=== PATIENT | male | born 1995 | race Caucasian/White ===

== ENCOUNTER 2022-03-12 08:00 | Outpatient (RCR) | payer OTHER, SELFPAY | END 2022-10-21 16:17 | disposition home or self-care (01) | PROVIDERS: Visit Provider Orthopaedic Surgery Sports Medicine | DX: M54.2 Cervicalgia (principal); S46.919A Strain of unspecified muscle, fascia and tendon at shoulder and upper arm level, unspecified arm, initial encounter; M62.89 Other specified disorders of muscle; Z51.89 Encounter for other specified aftercare | CPT/HCPCS: 97012; 97110; 97140; 97162 ==

== ENCOUNTER 2022-03-19 07:05 | Outpatient (CLI) | payer OTHER, SELFPAY ==
--- NOTE | 2022-03-19 07:15 | CRLHL7_ITS ---
For Patients: As a result of the Century Cures Act, medical imaging exams and procedure reports are released immediately into your electronic medical record. You may view this report before your referring provider. If you have questions, please contact your health care provider. INDICATION: Neck pain; intermittently radiating into both arms. TECHNIQUE: Sagittal T1, sagittal and axial T2 and sagittal STIR images are obtained. FINDINGS: The sagittal alignment cervical spine is within normal limits. The lower brainstem, the cervical and thoracic spinal cord appear intrinsically normal. There is no stenosis foramen magnum level C1 or C2 levels. At C2-3 no disc herniation central or lateral stenosis. At C3-4 no disc herniation central or lateral stenosis. At C4-5 no disc herniation central or lateral stenosis. At C5-6 no disc herniation central or lateral stenosis. At C6-7 no disc herniation central or lateral stenosis. At C7-T1 no disc herniation central or lateral stenosis. IMPRESSION: 1. There is no evidence of cervical disc herniation, central or lateral stenosis or intradural pathology. 2. Normal appearing cervical spinal cord. Dictated by Landen Perez MD @ 03/19/2022 12:20:51 PM (Electronically Signed)
== END 2022-03-19 07:06 | disposition home or self-care (01) ==
LOC: MRI 07:05
PROVIDERS: Visit Provider Orthopaedic Surgery Sports Medicine
DX: M54.2 Cervicalgia (principal); S46.919A Strain of unspecified muscle, fascia and tendon at shoulder and upper arm level, unspecified arm, initial encounter
CPT/HCPCS: 72141

== ENCOUNTER 2022-03-21 10:10 | Outpatient (CLI) | payer OTHER, SELFPAY ==
[2022-03-21 10:41] LABS: White Blood Count* 4.37 K/uL (4.50-11.00)
[2022-03-21 11:16] LABS: C Reactive Protein* < 0.5 mg/dL (0.5-1.0)
[2022-03-21 11:30] LABS: Erythrocyte SedimentationRate* 2 mm/hr (2-15)
[2022-03-22 15:18] LABS: Rheumatoid Factor <10 IU/mL (0-14)
[2022-03-23 01:29] LABS: Anti-Nuclear Ab(ANA)IgG ELISA None Detected (None Detected)
== END 2022-03-21 10:11 | disposition home or self-care (01) ==
LOC: LAB 10:11
PROVIDERS: Visit Provider Orthopaedic Surgery Sports Medicine
DX: M25.50 Pain in unspecified joint (principal); M79.10 Myalgia, unspecified site
CPT/HCPCS: 36415; 85048; 85651; 86039; 86140; 86200; 86431; 86618

== ENCOUNTER 2024-08-26 19:03 | Emergency (ER) | payer OTHER, SELFPAY ==
--- OUTSIDE RECORDS SUMMARY | 2024-08-26 19:07 | XMS_ITS | Clinical Summary ---
Author Organization [facility] Address [address] [place] [id number] Care Team Providers Care Account Officer Name Role Phone Isidro Otero MD Primary Care Provider [phone] Allergies No known active allergies Medications metoprolol succinate (TOPROL XL) 25 mg Sustained-Relea se tabletIndicatio ns:Bicuspid aortic valve,Enlarged aorta,Aneurysm of ascending aorta without rupture Take 1 Tablet (25 mg) by mouth once daily. 90 Tablet 3 5 Active Additional Information Patient not taking.Reason: hasn't started taking yet, Reported on 08/26/2024 loratadine (CLARITIN) 10 mg tabletIndicatio ns:Rhinitis Take 1 tablet by mouth once daily. For allergies. 30 tablet 5 3 025 Discontin ued(*Marilyn ent states no longer taking) triamcinolone, 55 mcg each actuation, nasal (NASACORT) 55 mcg nasal spray Inhale 2 Sprays into both nostrils once daily. 16.5 g 0 5 025 Discontin ued(*Marilyn ent states no longer taking) ranitidine (ZANTAC) 150 mg tablet Take 150 mg by mouth 2 times daily. 025 Discontin ued(*Marilyn ent states no longer taking) CALCIUM CARBONATE (TUMS 500 ORAL)Indication s:heartburn Take 2 Tabs by mouth once daily if needed (uses daily). Indications: HEARTBURN 025 Discontin ued(*Marilyn ent states no longer taking) Omeprazole 20 mg tabletIndicatio ns:Reflux esophagitis Take 1 tablet by mouth once daily. For Silent Reflux/throat symptoms. 30 tablet 6 7 025 Discontin ued(*Marilyn ent states no longer taking) SUMAtriptan (IMITREX) 25 mg tabletIndicatio ns:Migraine with aura, not intractable, without status migrainosus Take 1 tablet by mouth every 2 hours if needed for Migraine. Max dose: 200mg per 24 hrs. 8 tablet 1 7 025 Discontin ued(*Marilyn ent states no longer taking) metoprolol tartrate (LOPRESSOR) 50 mg tabletIndicatio ns:Preprocedura l examination Take 1 Tablet (50 mg) by mouth one time for 1 dose. Medication(s) given per CTA protocol (policy reference #[id number]). 5 025 Discontin ued(*Med complete/ Regimen complete/ Level of care change) nitroglycerin (NITROSTAT) 0.4 mg sublingual tabletIndicatio ns:Preprocedura l examination Place 2 Tablets (0.8 mg) under the tongue one time for 1 dose. Medication(s) given per CTA protocol (policy reference #[id number]). 5 025 Discontin ued(*Med complete/ Regimen complete/ Level of care change) Active Problems Problem Noted Date Diagnosed Date Enlarged aorta 08/23/2024 Bicuspid aortic valve 08/23/2024 Overview (08/25/2024): August 2024: Found on echocardiogram. Aneurysm of ascending aorta without rupture 09/2024 Overview (08/25/2024): August 2024: found on echocardiogram. GERD (gastroesophageal reflux disease) 1 Varicella without mention of complication 2010 Overview (01/31/2011): History of disease age 5 in the spring Regular astigmatism 09/17/2006 Myopia 09/17/2006 Encounters Date Type Department Care Team Description 08/26/2024 2:30 PM MANUAL TRAINING TEACHER Office Visit [facility] [address] [place] [address] Doc [address] MD CV CT Surgery New (AORTIC VALVE, REF: [place]//PCP: Isidro Otero MD//) 08/25/2024 1:00 PM MANUAL TRAINING TEACHER Ancillary Procedure [facility] [address] [place] [address] Arrived 08/25/2024 11:00 AM MANUAL TRAINING TEACHER Office Visit [facility] [address] [place] [address] Clemencia Ricardo MD Consult (MARK/NEW PT- Bicuspid aortic valve, Dizziness, CTA/Echo/EKG/Labs done 08/23, Post ED visit 08/23, records in chart- Ref by Susie Patton MD) 08/25/2024 Orders Only [facility] [address] [place] [address] Blayne Kiran RN <No scans attached> 08/25/2024 Telephone [facility] [address] [place] [address] Clemenica Ricardo MD Referral 08/25/2024 Travel 08/23/2024 12:50 PM MANUAL TRAINING TEACHER - 08/23/2024 5:09 PM MANUAL TRAINING TEACHER Emergency [facility] Emergency Department [address] [place] [address] Susie Patton MD Enlarged aorta (Primary Dx); Bicuspid aortic valve; Aneurysm of ascending aorta without rupture; Dizziness Discharge Disposition: Home Self Care 08/23/2024 10:00 AM MANUAL TRAINING TEACHER Ancillary Procedure [facility] [address] [place] [address] Arrived 08/23/2024 Travel 08/22/2024 9:05 AM MANUAL TRAINING TEACHER Office Visit [facility] [address] [place] [address] Isidro Otero MD heart concerns (Lightheaded spells - feels head is floating around./Had a DOT physical and was told he might have a leaky heart valvue but not to worry about it./When eating salt, he feels heaviness on his chest.) 08/22/2024 Orders Only [facility] [address] [place] [address] Isidro Otero MD 1 scan: (1-Ord) NFLD-EKG-08/22/2024 08/22/2024 Travel from Last 3 Months Immunizations Name Administration Dates Next Due DTP 08/21/1998, 5,03/25/1994,01/15,1993 HIB PRP-OMP (PedvaxHIB) 12/24/1994,03/25,01/15/1994,11/05 Hepatitis A (Peds) 01/31/2011 Hepatitis B (Peds) 03/25/1994,1993, 994 MENINGOCOCCAL VACCINE 2 VIAL [id number] (MENVEO) 01/31/2011 MMR 08/21/1998,12/24/1994 Meningococcal Vaccine 10/21/2005 Oral Polio Vaccine 08/21/1998, 5,01/15/1994,11/05 Tdap 10/21/2005 Family History Medical History Relation Name Comments Cancer Father Lung cancer Cancer-colon Maternal Grandmother Good Health Mother Genetic Other cancer Cancer Paternal Grandfather bone ca ncer Cancer Paternal Grandmother breast cancer Relation Name Status Comments Father Alive Maternal Grandfather Alive Maternal Grandmother Alive Mother Alive Other Paternal Grandfather Paternal Grandmother Social History Tobacco Use Types Packs/Day Years Used Date Smoking Tobacco: Never Smokeless Tobacco: Current Chew Tobacco Cessation:Ready to Q uit: Not Asked; Counseling Given: Not Answered Alcohol Use Standard Drinks/Week Comments Yes 0 (1 standard drink = 0.6 oz pure alcohol) a few drinks a few times per year Social Connections Answer Date Recorded Do you often feel lonely or isolated from those around you? 0 08/22/2024 Financial Resource Strain Answer Date R ecorded Difficulty of Paying Living Expenses 3 08/22/2024 Difficulty of Paying Living Expenses Not on file 08/22/2024 Food Insecurity Answer Date Recorded Do you worry your food will run out before you are able to buy more? 1 08/22/2024 Transportation Needs Answer Date Record ed Does lack of transportation keep you from medica l appointments? 1 08/22/2024 Does lack of transportation keep you from work, meetings or getting things that you need? 1 08/22/2024 Housing Stability Answer Date Recorded What is your housing situation today? 1 08/22/2024 Interpersonal Safety Answer Date Record ed Are you being hit, kicked, p ushed or yelled at (see row info)? No 08/23/2024 Interpersonal Safety Abuse 12 - 18 Not on file 08/23/2024 Interpersonal Safety Ambulatory Vulnerability No t on file 08/23/2024 Utilities Answer Date Recorded Do you have trouble paying f or utilities (for example, heat, electricity, water, phone)? 1 08/22/2024 Sex and Gender Information Value Date Recorded Sex Assigned at Not on file Legal Sex Male 5:26 AM MANUAL TRAINING TEACHER Gender Identity Not on file Sexual Orientation Not on file Obstetrics History Last Filed Vital Signs Vital Sign Reading Time Taken Comments Blood Pressure 124/77 08/26/2024 2:31 PM MANUAL TRAINING TEACHER Pulse 70 08/26/2024 2:31 PM MANUAL TRAINING TEACHER Temperature 37 C (98.6 F) 08/23/2024 12:42 PM MANUAL TRAINING TEACHER Respiratory Rate 18 08/23/2024 3:45 PM MANUAL TRAINING TEACHER Oxygen Saturation 96% 08/26/2024 2:31 PM MANUAL TRAINING TEACHER Inhaled Oxygen Concentration - - Weight 80.7 kg (178 lb) 08/26/2024 2:31 PM MANUAL TRAINING TEACHER Height 175.3 cm (5' 9) 08/26/2024 2:31 PM MANUAL TRAINING TEACHER Body Mass Index 26.29 08/26/2024 2:31 PM MANUAL TRAINING TEACHER Plan of Treatment Upcoming Encounters Date Type Department Care Team (Late st Contact Info) Description 09/14/2024 2:45 PM CDT Orders Only [facility] [address] [place] [address] Lab, [place] [facility] Maintenance Due Date Last Done Comments Depression screening for age 12+ 2005 Pneumococcal series for age 6-49 (1 of 2 - PCV) 2012 Tetanus booster 10/22/2015 10/21/2005 COVID-19 vaccine series ( - season) 2024 Influenza for age 9-49 02/21/2024 BMI (ht and wt on same day) for age 18+ 08/26/2025 08/26/2024, 08/25/2024, 07/24/2016 Tdap Completed 10/21/2005 HIV for age 15-65 Completed 07/24/2016 Hepatitis C screening for age 18-79 Completed 07/24 Procedures Procedure Name Priority Date/Time Associated Diagnosis Comments CT CARDIAC CORONARY ARTERIES CV DUAL READ MARK 08/25/2024 1:14 PM MANUAL TRAINING TEACHER Bicuspid aortic valve Dizziness Enlarged aorta CT CARDIAC CORONARY ARTERIES RAD DUAL READ MARK 08/25/2024 1:14 PM MANUAL TRAINING TEACHER Bicuspid aortic valve Dizziness Enlarged aorta TROPONIN T (HS) ONE TIME Timed 08/23/2024 2:52 PM MANUAL TRAINING TEACHER CTA CHEST ABDOMEN PELVIS AORTIC DISSECTION W STAT 08/23/2024 2:16 PM MANUAL TRAINING TEACHER ISTAT CHEM 8 Timed 08/23/2024 1:19 PM MANUAL TRAINING TEACHER EKG 12 LEAD STAT 08/23/2024 1:16 PM MANUAL TRAINING TEACHER C-REACTIVE PROTEIN STAT 08/23/2024 12 :57 PM MANUAL TRAINING TEACHER SEDIMENTATION RATE STAT 08/23/2024 12 :57 PM MANUAL TRAINING TEACHER TROPONIN T (HS) ACUTE W/2HR REFLEX STAT 08/23/2024 12:57 PM MANUAL TRAINING TEACHER BASIC METABOLIC PANEL STAT 08/23/2024 12:57 PM MANUAL TRAINING TEACHER CBC W PLT NO DIFF STAT 08/23/2024 12: 57 PM MANUAL TRAINING TEACHER ECHO TTE COMPLETE WO CONTRAST Routine 08/23/2024 10:29 AM MANUAL TRAINING TEACHER Diastolic murmur Shortness of breath CA READING EKG - NO CHARGE, COMP ONLY Routine 08/22/2024 4:28 PM MANUAL TRAINING TEACHER Diastolic murmur Shortness of breath EKG 12 LEAD Routine 08/22/2024 4:28 PM MANUAL TRAINING TEACHER Diastolic murmur Shortness of breath ANTI HIV 1/2 Routine 07/24/2016 1:23 PM MANUAL TRAINING TEACHER Screen for STD (sexually transmitted disease) ANTI HCV Routine 07/24/2016 1:23 PM MANUAL TRAINING TEACHER Screen for STD (sexually transmitted disease) from Last 3 Months or Most Recently Relevant to Health Maintenance Results * CT CARDIAC CORONARY ARTERIES CV DUAL READ (08/25/2024 1:14 PM MANUAL TRAINING TEACHER) Anatomical Region Laterality Modality HEART Computed Tomogra phy 08/25/2024 1:00 PM MANUAL TRAINING TEACHER Narrative 08/25/2024 3:05 PM MANUAL TRAINING TEACHER [facility] Cardiac CT Report Name: YENNY ECHEVERRIA : Scan Date: Accession Number: [id number] Status: Final Electronically signed by Juancarlos Heredia 15:05:05 VITALS ===== HEIGHT: 69 in (175 cm) WEIGHT: 174 lbs (79 kgs) BSA: 1.95 m^2 BMI: 26 kg/m^2 BP: 118 / 71 mmHg BASELINE HR: 53 BPM HEART RHYTHM: Normal Sinus Rhythm FINAL IMPRESSION ===== [place] Coronaries: 1. Normal epicardial coronary arteries without atherosclerosis. 2. The aortic valve is bicuspid (type 0) with a dilated aortic sinus (maximal cusp to cusp diameter of 44mm). 3. The ascending aorta is severely dilated (52mm x 52mm) with an area/height index of 11.6cm2/m. STUDY QUALITY: Study quality is excellent. CAD-RADS: CAD-RADS Classification 0 (0% stenosis). DOMINANCE: Right dominant coronary artery system. LM: The LM is normal. LAD: The LAD is normal. D1: The first diagonal is normal. LCX: The LCx is normal. OM1: The first obtuse marginal is normal. OM2: The second obtuse marginal is normal. RCA: The RCA is normal. RIGHT PDA: The right PDA is normal. RIGHT PLB: The right posterolateral branch is normal. OTHER FINDINGS: Ascending thoracic aorta measures 5.2 cm. There is no calcification of the thoracic aorta. There is no mitral annulus calcification. Hiatal hernia not present. Type 0 bicuspid aortic valve. Dilated aortic sinus with a maximal cusp to cusp diameter of 44mm. The ascending aorta is severely dilated (52mm x 52mm) with an area/height index of 11.6cm2/m. SCAN INFO ===== TEST TYPE: Coronary CT Angiography SCANNER STRATEGY MANAGER: SIEMENS SCANNER MODEL: Rescale DOSE REDUCTION ALGORITHM: Prospective/Ybqu-ugj-[id number] PHASE UNITS: % START PHASE: 65 % END PHASE: 75 % EKG GATED: Yes PRE-CONTRAST: No POST-CONTRAST: Yes 3D RECONSTRUCTION: Yes PACEMAKER ----- --- DEVICE: No GENERAL ----- --- CONTRAST AGENT CONTRAST AGENT USED?: Yes TYPE: Omnipaque 350 DOSE: 84 ml RATE: 6.5 ml/s ROUTE: IV ARM: Right BOLUS TECHNIQUE: Biphasic SERUM CREATININE: 1.09 mg/dL GFR: 84.42 ml/min/1.73m^2 CREATININE DATE: CT CONTRAST REACTION: None MEDICATION ADMINISTERED DURING SCAN TYPE: Nitroglycerin, sublingual, B-Blockers NITROGLYCERIN, TOTAL DOSE: 0.8 mg B-UBALDO TYPE: Oral B-UBALDO NAME, ORAL: Metoprolol tartrate B-BLOCKERS, ORAL DOSE: 50 mg RADIATION DOSE DLP: 103 KV: 70 SETUP PATIENT TYPE: Outpatient REASON(S) FOR SCAN: Pre-operative risk evaluation REFERRING PHYSICIAN: CLEMENCIA RICARDO TECHNOLOGIST: Landen Baird ===== Patient Account [id number] ICD10 Codes Q23.81, R42, I77.89 Report generated by [employer], a product of [employer] Procedure Note Juancarlos Heredia MD - 08/25/20[address] [facility] Cardiac CT Report Name: YENNY ECHEVERRIA : Scan Date: Accession Number: [id number] Status: Final Electronically signed by Juancarlos Heredia 15:05:05 VITALS ===== HEIGHT: 69 in (175 cm) WEIGHT: 174 lbs (79 kgs) BSA: 1.95 m^2 BMI: 26 kg/m^2 BP: 118 / 71 mmHg BASELINE HR: 53 BPM HEART RHYTHM: Normal Sinus Rhythm FINAL IMPRESSION ===== [place] Coronaries: 1. Normal epicardial coronary arteries without atherosclerosis. 2. The aortic valve is bicuspid (type 0) with a dilated aortic sinus(maximal cusp to cusp diameter of 44mm). 3. The ascending aorta is severely dilated (52mm x 52mm) with anarea/height index of 11.6cm2/m. STUDY QUALITY: Study quality is excellent. CAD-RADS: CAD-RADS Classification 0 (0% stenosis). DOMINANCE: Right dominant coronary artery system. LM: The LM is normal. LAD: The LAD is normal. D1: The first diagonal is normal. LCX: The LCx is normal. OM1: The first obtuse marginal is normal. OM2: The second obtuse marginal is normal. RCA: The RCA is normal. RIGHT PDA: The right PDA is normal. RIGHT PLB: The right posterolateral branch is normal. OTHER FINDINGS: Ascending thoracic aorta measures 5.2 cm. There is nocalcification of the thoracic aorta. There is no mitral annulus calcification. Hiatal hernia not present. Type 0 bicuspid aortic valve. Dilated aortic sinus with a maximal cusp to cusp diameter of 44mm. The ascending aorta is severely dilated (52mm x 52mm) with an area/heightindex of 11.6cm2/m. SCAN INFO ===== TEST TYPE: Coronary CT Angiography SCANNER STRATEGY MANAGER: SIEMENS SCANNER MODEL: [employer] DOSE REDUCTION ALGORITHM: Prospective/Obgv-mei-dcmvn PHASE UNITS: % START PHASE: 65 % END PHASE: 75 % EKG GATED: Yes PRE-CONTRAST: No POST-CONTRAST: Yes 3D RECONSTRUCTION: Yes PACEMAKER ----- --- DEVICE: No GENERAL ----- --- CONTRAST AGENT CONTRAST AGENT USED?: Yes TYPE: Omnipaque 350 DOSE: 84 ml RATE: 6.5 ml/s ROUTE: IV ARM: Right BOLUS TECHNIQUE: Biphasic SERUM CREATININE: 1.09 mg/dL GFR: 84.42 ml/min/1.73m^2 CREATININE DATE: CT CONTRAST REACTION: None MEDICATION ADMINISTERED DURING SCAN TYPE: Nitroglycerin, sublingual, B-Blockers NITROGLYCERIN, TOTAL DOSE: 0.8 mg B-UBALDO TYPE: Oral B-UBALDO NAME, ORAL: Metoprolol tartrate B-BLOCKERS, ORAL DOSE: 50 mg RADIATION DOSE DLP: 103 KV: 70 SETUP PATIENT TYPE: Outpatient REASON(S) FOR SCAN: Pre-operative risk evaluation REFERRING PHYSICIAN: CLEMENCIA RICARDO TECHNOLOGIST: Landen Baird ===== Patient Account [id number] ICD10 Codes Q23.81, R42, I77.89 Report generated by [employer], a product of [employer] Clemencia Ricardo MD CT Final Result * CT CARDIAC CORONARY ARTERIES RAD DUAL READ (08/25/2024 1:14 PM MANUAL TRAINING TEACHER) Anatomical Region Laterality Modality HEART Computed Tomogra phy Impressions 08/25/2024 2:33 PM MANUAL TRAINING TEACHER See separate cardiology report for cardiac findings. Please note that all CT scans at this facility use dose modulation, iterative reconstruction and/or weight-based dosing when appropriate to reduce radiation dose to as low as reasonably achievable. Sofiya Read M.D. Diagnostic/Breast Radiologist [email or web address] / Narrative 08/25/2024 2:33 PM MANUAL TRAINING TEACHER For Patients: As a result of the Century Cures Act, medical imaging exams and procedure reports are released immediately into your electronic medical record. You may view this report before your referring provider. If you have questions, please contact your health care provider. THIS IS THE RADIOLOGY OVER READ REPORT OF A DUAL READ STUDY. READ THE SEPARATE CARDIOLOGY REPORT FOR CARDIOVASCULAR FINDINGS. REPORTS MAY BE FINALIZED AT DIFFERENT TIMES. TECHNIQUE: Please see cardiology report for technical information. This exam is being performed in conjunction with the services provided by the [facility] ([facility]). INDICATION: Cardiac over-read. FINDINGS: There is no central pulmonary emboli. Visualized lungs appear clear. Clemencia Ricardo MD CT Final Result * TROPONIN T (HS) ONE TIME (08/23/2024 2:52 PM MANUAL TRAINING TEACHER) Pathologist [facility] TROPONIN T HS 7 6-15 ng/L ng/L 08/23/2024 3:33 PM MANUAL TRAINING TEACHER [facility] Blood BLOOD SPECIMEN / Unknown Non-Lab Venipuncture / Unknown 08/23/2024 2:52 PM MANUAL TRAINING TEACHER 08/23/2024 2:57 PM MANUAL TRAINING TEACHER Susie Patton MD CHEMISTRY Final Result [facility] [address] [place] [address], [place] * CTA CHEST ABDOMEN PELVIS AORTIC DISSECTION W (08/23/2024 2:16 PM MANUAL TRAINING TEACHER) Anatomical Region Laterality Modality CHEST, Abdomen, Pelvis, AORTA, THORAX, HEART Computed Tomography 08/23/2024 2:48 PM MANUAL TRAINING TEACHER Narrative 08/23/2024 2:48 PM MANUAL TRAINING TEACHER For Patients: As a result of the Century Cures Act, medical imaging exams and procedure reports are released immediately into your electronic medical record. You may view this report before your referring provider. If you have questions, please contact your health care provider. Indication: Enlarged aorta on echo? lightheadedness Technique: CTA chest/abdomen/pelvis, aortic dissection protocol, with unenhanced CT of the chest and CTA chest/abdomen/pelvis utilizing 100 mL Omnipaque 350. 3D/MIP post- processing on an independent workstation was performed. Comparison: None Findings: Heart/vasculature: The heart is normal in size. No pericardial effusion. No coronary artery calcifications. No central pulmonary embolism. There is no intramural hematoma of the thoracic aorta. There is no dissection. Aneurysmal dilatation of the ascending thoracic aorta measuring 5.4 centimeters in diameter. There is no arterial occlusion or stenosis. Duplicated renal arteries bilaterally. Chest: No imaged thyroid nodules. No thoracic lymphadenopathy. No focal airspace consolidation, pleural effusion, or pneumothorax. No suspicious pulmonary nodules or masses. The airways are clear. Abdomen/pelvis: The liver, gallbladder and biliary system, spleen, pancreas, adrenal glands, kidneys, ureters, and bladder are within normal limits in appearance. Simple appearing 1.3 centimeter renal cyst in the left kidney. The seminal vesicles and prostate are within normal limits in appearance. Likely undescended right testicle in the right inguinal canal. There is no evidence of bowel obstruction or inflammation. The appendix is within normal limits in appearance. No free air, free fluid, or abscess. No abdominopelvic lymphadenopathy. Soft tissue/musculoskeletal: Unremarkable Impression: 1. No CT evidence of an acute process involving the chest/abdomen/pelvis; specifically, no aortic dissection. 2. Aneurysmal dilatation of the ascending thoracic aorta measuring 5.4 centimeters in diameter. 3. Additional incidental findings as detailed above. Please note that all CT scans at this facility use dose modulation, iterative reconstruction, and/or weight-based dosing when appropriate to reduce radiation dose to as low as reasonably achievable. Dictated by Ric He MD @ 08/23/2024 2:48:48 PM (Electronically Signed) Procedure Note Ric He MD - 08/23/2024 For Patients: As a result of the Cures Act, medical imagingexams and procedure reports are released immediately into your electronicmedical record. You may view this report before your referring provider.If you have questions, please contact your health care provider. Indication: Enlarged aorta on echo? lightheadedness Technique: CTA chest/abdomen/pelvis, aortic dissection protocol, with unenhanced CTof the chest and CTA chest/abdomen/pelvis utilizing 100 mL Omnipaque 350.3D/MIP post- processing on an independent workstation was performed. Comparison: None Findings: Heart/vasculature: The heart is normal in size. No pericardial effusion. No coronary arterycalcifications. No central pulmonary embolism. There is no intramural hematoma of the thoracic aorta. There is nodissection. Aneurysmal dilatation of the ascending thoracic aortameasuring 5.4 centimeters in diameter. There is no arterial occlusion orstenosis. Duplicated renal arteries bilaterally. Chest: No imaged thyroid nodules. No thoracic lymphadenopathy. No focal airspace consolidation, pleural effusion, or pneumothorax. Nosuspicious pulmonary nodules or masses. The airways are clear. Abdomen/pelvis: The liver, gallbladder and biliary system, spleen, pancreas, adrenalglands, kidneys, ureters, and bladder are within normal limits inappearance. Simple appearing 1.3 centimeter renal cyst in the left kidney. The seminal vesicles and prostate are within normal limits in appearance.Likely undescended right testicle in the right inguinal canal. There is no evidence of bowel obstruction or inflammation. The appendix iswithin normal limits in appearance. No free air, free fluid, or abscess. No abdominopelvic lymphadenopathy. Soft tissue/musculoskeletal: Unremarkable Impression: 1. No CT evidence of an acute process involving the chest/abdomen/pelvis;specifically, no aortic dissection. 2. Aneurysmal dilatation of the ascending thoracic aorta measuring 5.4centimeters in diameter. 3. Additional incidental findings as detailed above. Please note that all CT scans at this facility use dose modulation,iterative reconstruction, and/or weight-based dosing when appropriate toreduce radiation dose to as low as reasonably achievable. Dictated by Ric He MD @ 08/23/2024 2:48:48 PM (Electronically Signed) Susie Patton MD CT Final Result * (ABNORMAL) ISTAT CHEM 8 (08/23/2024 1:19 PM MANUAL TRAINING TEACHER) SODIUM, POCT 139 135 - 145 mmol/L 08/23/2024 1:22 PM MANUAL TRAINING TEACHER [facility] POTASSIUM, POCT 4.1 3.5 - 5.0 mmol/L 08/23/2024 1:22 PM MANUAL TRAINING TEACHER [facility] CHLORIDE, POCT 102 98 - 107 mmol/L 08/23/2024 1:22 PM MANUAL TRAINING TEACHER [facility] CO2,TOTAL, POCT 28 21 - 31 mmol/L 08/23/2024 1:22 PM MANUAL TRAINING TEACHER [facility] ANION GAP, POCT 14 5 - 18 1:22 PM MANUAL TRAINING TEACHER [facility] GLUCOSE, POCT 105(H) 70 - 99 mg/dL 08/23/2024 1:22 PM MANUAL TRAINING TEACHER [facility] IONIZED CALCIUM, POCT 08/23/2024 1:22 PM MANUAL TRAINING TEACHER [facility] Comment:Unable to determine. BUN, POCT 20 8 - 25 mg/dL 08/23/2024 1:22 PM MANUAL TRAINING TEACHER [facility] CREATININE, POCT 08/24/19 25 1:22 PM MANUAL TRAINING TEACHER [facility] Comment: Unable to determine. Caution: Patients taking Hydroxyurea have falsely increased iStat Creatinine results. Verify creatinine results ordering a Creatinine (45273.2) BUN/CREAT RATIO, POCT 08/23/2024 1:22 PM MANUAL TRAINING TEACHER [facility] Comment:Unable to calculate. eGFR 08/23/2024 1:22 PM MANUAL TRAINING TEACHER [facility] Comment:Unable to calculate. HEMATOCRIT, POCT 45.0 37.0 - 53.0 % 08/23/2024 1:22 PM MANUAL TRAINING TEACHER [facility] HEMOGLOBIN, POCT 15.3 13.5 - 17.5 g/dL 08/23/2024 1:22 PM MANUAL TRAINING TEACHER [facility] Blood BLOOD SPECIMEN / Unknown 08/23/2024 1:19 PM MANUAL TRAINING TEACHER 08/23/2024 1:22 PM MANUAL TRAINING TEACHER Susie Patton MD CHEMISTRY Final Result Performing Organization Address City/[facility]/ZIP Co de Phone Number [facility] [address] [place] [address], * EKG 12 LEAD (08/23/2024 1:16 PM MANUAL TRAINING TEACHER) Only the most recent of2 resultswithin the time period is included. Pathologist [facility] Interpretation Normal sinus rhythm Normal ECG BEYOND NOW Ventricular Rate 60 BPM BEYOND NOW Atrial Rate 60 BPM BEYOND NOW P-R Interval 152 ms BEYOND NOW QRS Duration 96 ms BEYOND NOW QT 418 ms BEYOND NOW QTc 418 ms BEYOND NOW P [place] 57 degrees BEYOND NOW R [place] 57 degrees BEYOND NOW T [place] 65 degrees BEYOND NOW 08/23/2024 1:16 PM MANUAL TRAINING TEACHER 08/23/2024 5:32 PM MANUAL TRAINING TEACHER Susie Patton MD EKG ORD Final Result Performing Organization Address City/[facility] Co de Phone Number BEYOND NOW [place], [place] * TROPONIN T (HS) ACUTE W/2HR REFLEX (08/23/2024 12:57 PM MANUAL TRAINING TEACHER) Pathologist [facility] TROPONIN T HS 6 6-15 ng/L ng/L 08/23/2024 1:52 PM MANUAL TRAINING TEACHER [facility] Blood BLOOD SPECIMEN / Unknown Non-Lab Venipuncture / Unknown 08/23/2024 12:57 PM MANUAL TRAINING TEACHER 08/23/2024 1:18 PM MANUAL TRAINING TEACHER [facility] - 08/23/2024 1:52 PM MANUAL TRAINING TEACHER hs-cTnT (Elecsys Troponin T Gen 5) concentration (s) above the sex-specific 99th percentile (16 ng/L or greater for males or 11 ng/L or greater for females) are indicative of myocardial injury. If initial hs-cTnT <=100 ng/L at presentation, a 0h/2h ABSOLUTE (ng/L) delta change (rising or falling) of >=10 ng/L suggests a significant change, whereas a 0h/2h delta change <=3 ng/L suggests no significant change. If initial hs-cTnT >100 ng/L at presentation, a 0h/2h/ RELATIVE (percent, %) delta change of 20% is suggested to distinguish patients with acute vs. chronic myocardial injury. There are multiple etiologies that can cause hs-cTnT increases above the 99th percentile (myocardial injury) other than acute myocardial infarction. Clinical context and careful clinical evaluation are critical for diagnosis and risk-stratification. The diagnosis of acute myocardial infarction requires a rising and/or falling pattern in hs-cTnT concentrations with at least one value above the sex-specific 99th percentile PLUS at least one of the following clinical criteria: ischemic symptoms, new or presumed new significant ST-T wave changes or new LBBB, development of pathological Q waves, imaging evidence of new loss of viable myocardium or new regional wall motion abnormality, or identification of intracoronary atherothrombosis or an acute angiographic culprit on coronary angiography. In appropriate low-risk patients with a non-ischemic electrocardiogram without active chest pain with a symptom onset >3-hours without recurrence, a single initial hs-cTnT<6 ng/L identifies patient with a very low risk in emergency department patient population. Susie Patton MD CHEMISTRY Final Result [facility] [address] [place] [address], [place] * SEDIMENTATION RATE (08/23/2024 12:57 PM MANUAL TRAINING TEACHER) SEDIMENTATION RATE 5 <15 mm/hr 2024 1:45 PM MANUAL TRAINING TEACHER [facility] Blood BLOOD SPECIMEN / Unknown Non-Lab Venipuncture / Unknown 08/23/2024 12:57 PM MANUAL TRAINING TEACHER 08/23/2024 1:18 PM MANUAL TRAINING TEACHER Susie Patton MD HEMATOLOGY Final Result [facility] [address] [place] [address], * CBC W PLT NO DIFF (08/23/2024 12:57 PM MANUAL TRAINING TEACHER) WHITE BLOOD COUNT 5.6 4.5 - 11.0 thou/cu mm 08/23/2024 1:23 PM MANUAL TRAINING TEACHER [facility] RED BLOOD COUNT 5.16 4.30 - 5.90 mil/cu mm 08/23/2024 1:23 PM MANUAL TRAINING TEACHER [facility] HEMOGLOBIN 15.9 13.5 - 17.5 g/dL 08/23/2024 1:23 PM MANUAL TRAINING TEACHER [facility] HEMATOCRIT 47.0 37.0 - 53.0 % 08/23/2024 1:23 PM MANUAL TRAINING TEACHER [facility] MCV 91 80 - 100 fL 08/23/2024 1:23 PM MANUAL TRAINING TEACHER [facility] MCH 30.8 26.0 - 34.0 pg 08/23/2024 1:23 PM MANUAL TRAINING TEACHER [facility] MCHC 33.8 32.0 - 36.0 g/dL 08/23/2024 1:23 PM MANUAL TRAINING TEACHER [facility] RDW 12.1 11.5 - 15.5 % 08/23/2024 1:23 PM MANUAL TRAINING TEACHER [facility] PLATELET COUNT 265 140 - 440 thou/cu mm 08/23/2024 1:23 PM MANUAL TRAINING TEACHER [facility] MPV 9.8 6.5 - 11.0 fL 08/23/2024 1:23 PM MANUAL TRAINING TEACHER [facility] NRBC 0.0 % 08/23/2024 1:23 PM MANUAL TRAINING TEACHER [facility] ABS NRBC 0.0 thou /cu mm 08/23/2024 1:23 PM MANUAL TRAINING TEACHER [facility] Blood BLOOD SPECIMEN / Unknown Non-Lab Venipuncture / Unknown 08/23/2024 12:57 PM MANUAL TRAINING TEACHER 08/23/2024 1:18 PM MANUAL TRAINING TEACHER Susie Patton MD HEMATOLOGY Final Result Performing Organization Address [facility] Co de Phone Number [facility] [address] [place] [address], * C-REACTIVE PROTEIN (08/23/2024 12:57 PM MANUAL TRAINING TEACHER) Pathologist [facility] C-REACTIVE PROTEIN <0.3 <0.5 mg/dL 08/23/2024 1:53 PM MANUAL TRAINING TEACHER [facility] Blood BLOOD SPECIMEN / Unknown Non-Lab Venipuncture / Unknown 08/23/2024 12:57 PM MANUAL TRAINING TEACHER 08/23/2024 1:18 PM MANUAL TRAINING TEACHER us Susie Patton MD CHEMISTRY Final Result Performing Organization Address [facility] Co de Phone Number [facility] [address] [place] [address], * (ABNORMAL) BASIC METABOLIC PANEL (08/23/2024 12:57 PM MANUAL TRAINING TEACHER) SODIUM 140 136 - 145 mmol/L 08/23/2024 1:52 PM MANUAL TRAINING TEACHER [facility] POTASSIUM 4.1 3.5 - 5.1 mmol/L 08/23/2024 1:52 PM MANUAL TRAINING TEACHER [facility] CHLORIDE 102 98 - 107 mmol/L 08/23/2024 1:52 PM MANUAL TRAINING TEACHER [facility] CO2,TOTAL 27 22 - 29 mmol/L 08/23/2024 1:52 PM MANUAL TRAINING TEACHER [facility] ANION GAP 11 5 - 18 08/23/2024 1:52 PM MANUAL TRAINING TEACHER [facility] GLUCOSE 101(H) 70 - 99 mg/dL 08/23/2024 1:52 PM [facility] CALCIUM 9.7 8.8 - 10.4 mg/dL 08/23/2024 1:52 PM [facility] Comment: Reference ranges for this test were updated on 04/26/2024 to reflect our healthy population more accurately. Reference range changes are not retroactively applied to results, but previous results using the same methodology can be interpreted in the context of the new reference range. BUN 18 6 - 20 mg/dL 08/23/2024 1:52 PM MANUAL TRAINING TEACHER [facility] CREATININE 1.09 0.70 - 1.20 mg/dL 08/23/2024 1:52 PM MANUAL TRAINING TEACHER [facility] BUN/CREAT RATIO 17 10 - 20 1:52 PM [facility] eGFR >90 >90 mL/min/1. 73m2 08/23/2024 1:52 PM [facility] Comment:As of 2021, eG FR is calculated by the CKD-EPI creatinine equation without race adjustment. eGFR can be influenced by muscle mass, exercise, and diet. The reported eGFR is an estimation only and is only applicable if the renal function is stable. Blood BLOOD SPECIMEN / Unknown Non-Lab Venipuncture / Unknown 08/23/2024 12:57 PM MANUAL TRAINING TEACHER 08/23/2024 1:18 PM MANUAL TRAINING TEACHER us Susie Patton MD CHEMISTRY Final Result [facility] [address] [place] [address], [place] * ECHO TTE COMPLETE WO CONTRAST (08/23/2024 10:29 AM MANUAL TRAINING TEACHER) AORTIC VALVE MEAN PG 9 mmHg EJECTION FRACTION 65 % LVEDD 4.9 cm EJECTION FRACTION 60 - 65% PEAK TR VELOCITY 2.2 m/s Anatomical Region Laterality Modality Ultrasound 08/23/2024 10:0 9 AM MANUAL TRAINING TEACHER Narrative 08/23/2024 1:07 PM MANUAL TRAINING TEACHER ECHOCARDIOGRAM YENNY ECHEVERRIA : 1995 28 years Study Date: 08/23/2024 10:09:49 AM Gender: M BP: 97/50 mmHg Height: 180.00 cm BSA: 1.99 m Weight: 79.00 kg Tech: [facility] Referring MD: ISIDRO OTERO Site: [facility] Reading Location: [facility] Patient Location: Outpatient. Procedure: 2D, Spectral Doppler and Color Doppler. Indication for study: Diastolic murmur; Shortness of breath Cardiac Rhythm: Normal sinus.Study quality: Good. Final Impressions: 1. Normal left ventricular size, normal wall thickness, normal global systolic function, calculated EF of 65 %. 2. Right ventricular cavity size is normal, global systolic RV function is normal. 3. The aortic valve is bicuspid, no stenosis and mild to moderate regurgitation (very eccentric jet). 4. Severely dilated ascending aorta, diameter of 5.3 cm (upper limit of normal for age, sex, and BSA is 3.5 cm), Height Index 2.94. 5. The aortic arch is dilated at 3.7 cm. 6. Dilated sinus of Valsalva, diameter of 3.9 cm (upper limt of normal for age, sex, and BSA is 3.8 cm), Height Index 2.17 cm/m. Comparison There are no prior studies on this patient for comparison purposes. Chamber Sizes and Function Normal left ventricular size, normal wall thickness, normal global systolic function, calculated EF of 65 %. No resting regional wall motion abnormality visualized. Left atrial size is normal. Left atrial pressure is normal. Right ventricular cavity size is normal, global systolic RV function is normal. RV wall thickness is normal. The right atrium is normal. Right atrial volume index is 14 ml/m . Right atrial area is 14 cm . The pulmonary artery is of normal size and origin. The sinus of Valsalva is dilated. The ascending aorta is severely dilated. The sinotubular junction is effaced. The aortic arch is dilated. Valves, RV Pressures and Diastolic Function The aortic valve is bicuspid, no stenosis and mild to moderate regurgitation. The mitral valve is normal in structure, no mitral regurgitation. Normal diastolic function. The tricuspid valve is normal in structure and trace tricuspid regurgitation. The tricuspid regurgitant velocity is 2.2 m/s, the estimated right ventricular systolic pressure is 19 mmHg plus right atrial pressure. There is normal estimated pulmonary pressure by tricuspid regurgitation velocity and right atrial pressure. The pulmonic valve is normal. No pulmonary regurgitation. Pulmonary veins show a normal flow pattern. Masses, Effusion, Shunts There is no pericardial effusion. The inferior vena cava is normal sized, respiratory size variation greater than 50%. No left to right shunting was detected by limited color flow Doppler interrogation of the interatrial septum. MEASUREMENTS AND CALCULATIONS 2-D Measurements and LV Function: LVID (d) 4.9 cm Planimetered EF 65 % LVID (s) 3.2 cm LV FS% (2D) 35 % IVS (d) 1.0 cm LVOT diameter 2.7 cm LVPW (d) 1.0 cm HR 59 bpm Ao Sinus 3.9 cm LA Vol index 20 ml/m2 Ao Sinus ULN 3.8 cm RA Vol index 14 ml/m2 Asc Ao 5.3 cm RA area 14 cm Asc Ao ULN 3.5 cm RV Basal Diam 3.3 cm Trans Ao 3.7 cm LA 3.2 cm Diastology: Mitral Tissue Doppler Pulmonary veins E Peak 1.1 m/s e', Septum 0.10 m/s Pulm s 50.4 cm/s A Peak 0.7 m/s e', Lateral 0.18 m/s Pulm d 64.8 cm/s E/A 1.6 E/e' Average 7.96 Pulm s/d ratio 0.78 DT 225 msec Aortic Valve: Vmax 1.9 m/s MICHAEL (V) 3.21 cm VTI 0.44 m MICHAEL (I) 3.41 cm LVOT V max 1.0 m/s Max PG 15 mmHg LVOT VTI 0.25 m Mean PG 9 mmHg SV 149 ml Dim Index 0.58 SV index 75 ml/m CO 8.8 l/min CI 4.4 l/min/m Mitral Valve: MVA 3.4 cm MV P 1/2 65 msec Tricuspid Valve and estimated PA pressures: TR Vmax 2.2 m/s TAPSE 2.8 cm TR maxG 19 mmHg Pulmonic Valve: PV AT 108 msec . This study was interpreted by an [facility] accredited facility. Final Procedure Note Andrew Collins MD - 08/23/2024 ECHOCARDIOGRAM YENNY ECHEVERRIA : 1995 28 years Study Date: 08/23/2024 10:09:49 AM Gender: M BP: 97/50 mmHg Height: 180.00 cm BSA: 1.99 m Weight: 79.00 kg Tech: [facility] Referring MD: ISIDRO OTERO Site: [facility] Reading Location: [facility] Patient Location: Outpatient. Procedure: 2D, Spectral Doppler and Color Doppler. Indication for study: Diastolic murmur; Shortness of breath Cardiac Rhythm: Normal sinus.Study quality: Good. Final Impressions: 1. Normal left ventricular size, normal wall thickness, normal globalsystolic function, calculated EF of 65 %. 2. Right ventricular cavity size is normal, global systolic RV functionis normal. 3. The aortic valve is bicuspid, no stenosis and mild to moderateregurgitation (very eccentric jet). 4. Severely dilated ascending aorta, diameter of 5.3 cm (upper limit ofnormal for age, sex, and BSA is 3.5 cm), Height Index 2.94. 5. The aortic arch is dilated at 3.7 cm. 6. Dilated sinus of Valsalva, diameter of 3.9 cm (upper limt of normalfor age, sex, and BSA is 3.8 cm), Height Index 2.17 cm/m. Comparison There are no prior studies on this patient for comparison purposes. Chamber Sizes and Function Normal left ventricular size, normal wall thickness, normal globalsystolic function, calculated EF of 65 %. No resting regional wall motionabnormality visualized. Left atrial size is normal. Left atrial pressureis normal. Right ventricular cavity size is normal, global systolic RVfunction is normal. RV wall thickness is normal. The right atrium isnormal. Right atrial volume index is 14 ml/m . Right atrial area is 14cm . The pulmonary artery is of normal size and origin. The sinus ofValsalva is dilated. The ascending aorta is severely dilated. Thesinotubular junction is effaced. The aortic arch is dilated. Valves, RV Pressures and Diastolic Function The aortic valve is bicuspid, no stenosis and mild to moderateregurgitation. The mitral valve is normal in structure, no mitralregurgitation. Normal diastolic function. The tricuspid valve is normal instructure and trace tricuspid regurgitation. The tricuspid regurgitantvelocity is 2.2 m/s, the estimated right ventricular systolic pressure is19 mmHg plus right atrial pressure. There is normal estimated pulmonarypressure by tricuspid regurgitation velocity and right atrial pressure.The pulmonic valve is normal. No pulmonary regurgitation. Pulmonary veinsshow a normal flow pattern. Masses, Effusion, Shunts There is no pericardial effusion. The inferior vena cava is normal sized,respiratory size variation greater than 50%. No left to right shunting wasdetected by limited color flow Doppler interrogation of the interatrialseptum. MEASUREMENTS AND CALCULATIONS 2-D Measurements and LV Function: LVID (d) 4.9 cm Planimetered EF 65 % LVID (s) 3.2 cm LV FS% (2D) 35 % IVS (d) 1.0 cm LVOT diameter 2.7 cm LVPW (d) 1.0 cm HR 59 bpm Ao Sinus 3.9 cm LA Vol index 20 ml/m2 Ao Sinus ULN 3.8 cm RA Vol index 14 ml/m2 Asc Ao 5.3 cm RA area 14 cm Asc Ao ULN 3.5 cm RV Basal Diam 3.3 cm Trans Ao 3.7 cm LA 3.2 cm Diastology: Mitral Tissue Doppler Pulmonary veins E Peak 1.1 m/s e', Septum 0.10 m/s Pulm s 50.4 cm/s A Peak 0.7 m/s e', Lateral 0.18 m/s Pulm d 64.8 cm/s E/A 1.6 E/e' Average 7.96 Pulm s/d ratio 0.78 DT 225 msec Aortic Valve: Vmax 1.9 m/s MICHAEL (V) 3.21 cm VTI 0.44 m MICHAEL (I) 3.41 cm LVOT V max 1.0 m/s Max PG 15 mmHg LVOT VTI 0.25 m Mean PG 9 mmHg SV 149 ml Dim Index 0.58 SV index 75 ml/m CO 8.8 l/min CI 4.4 l/min/m Mitral Valve: MVA 3.4 cm MV P 1/2 65 msec Tricuspid Valve and estimated PA pressures: TR Vmax 2.2 m/s TAPSE 2.8 cm TR maxG 19 mmHg Pulmonic Valve: PV AT 108 msec . This study was interpreted by an [facility] accredited facility. Final us Isidro Otero MD ECHO ORD Final Res ult * [place] READING EKG - NO CHARGE, COMP ONLY (08/22/2024 4:28 PM MANUAL TRAINING TEACHER) us Isidro Otero MD PB - PROVIDER READINGS Fi nal Result * ANTI HCV (07/24/2016 1:23 PM MANUAL TRAINING TEACHER) HEPATITIS C ANTIBODY Non-Reacti ve Non-Reacti ve 07/24/2016 8:35 PM MANUAL TRAINING TEACHER [facility] Blood BLOOD SPECIMEN / Unknown Venipuncture / Unknown 07/24/2016 1:23 PM MANUAL TRAINING TEACHER 07/24/2016 1:24 PM MANUAL TRAINING TEACHER Narrative [facility] - 07/24/2016 8:35 PM MANUAL TRAINING TEACHER Antibodies to HCV not detected; does not exclude the possibility of exposure to HCV. us Isidro Otero MD SEND OUTS Final Res ult [facility] [address] [place] [address], [place] * ANTI HIV 1/2 (07/24/2016 1:23 PM MANUAL TRAINING TEACHER) HIV-1/HIV-2 ANTIBODY Non-Reacti ve Non-Reacti ve 07/24/2016 8:30 PM MANUAL TRAINING TEACHER [facility] Blood BLOOD SPECIMEN / Unknown Venipuncture / Unknown 07/24/2016 1:23 PM MANUAL TRAINING TEACHER 07/24/2016 1:24 PM MANUAL TRAINING TEACHER [facility]ative [facility] 07/24/2016 8:30 PM MANUAL TRAINING TEACHER HIV-1 p24 and HIV-1/HIV-2 Ab not detected us Isidro Otero MD SEND OUTS Final Res ult [facility] [address] [place] [address], from Last 3 Months or Most Recently Relevant to Health Maintenance Insurance [employer] [place] [id number] Care Teams Account Officer Relationship Specialty Start Date End Date Isidro Otero MD [address] [place] [id number] PCP - General Family Practice 08/26/24
[2024-08-26 19:12] VITALS: BP 134/74; PULSE 62; RESP 16; TEMP 36.3; O2SAT 99; BMI 25.3
--- OUTSIDE RECORDS SUMMARY | 2024-08-26 20:20 | XMS_ITS | Clinical Summary ---
Author Organization [facility] [facility] Address [address] [place] [address] Care Team Providers Care Legal Financial Specialist Name Role Phone Isidro Otero MD Primary Care Provider [phone] Allergies No known active allergies Medications metoprolol [...] Medication(s) given per CTA protocol (policy reference #[id number]). 5 025 Discontin ued(*Med complete/ Regimen complete/ Level of care change) nitroglycerin (NITROSTAT) 0.4 mg sublingual tabletIndicatio ns:Preprocedura l examination Place 2 Tablets (0.8 mg) under the tongue one time for 1 dose. Medication(s) given per CTA protocol (policy reference #[id number]). 5 025 Discontin ued(*Med complete/ Regimen complete/ [...] Department Care Team Description 08/26/2024 2:30 PM EMPLOYEE RELATION MANAGER Office Visit [facility] [address] [place] [address] [address] CV [address] Surgery New (AORTIC VALVE, REF: [place]//PCP: Isidro Otero MD//) 08/25/2024 1:00 PM EMPLOYEE RELATION MANAGER Ancillary Procedure [facility] [address] [place] [address] Arrived 08/25/2024 11:00 AM EMPLOYEE RELATION MANAGER Office Visit [facility] [address] [place] [address] Clemencia Ricardo MD Consult (MARK/NEW PT- Bicuspid aortic valve, Dizziness, CTA/Echo/EKG/Labs done 08/23, Post ED visit 08/23, records in chart- Ref by Susie Patton MD) 08/25/2024 Orders Only [facility] [address] [place] [address] Blayne Kiran RN <No scans attached> 08/25/2024 Telephone [facility] [address] [place] [address] Clemencia Ricardo MD Referral 08/25/2024 Travel 08/23/2024 12:50 PM EMPLOYEE RELATION MANAGER - 08/23/2024 5:09 PM EMPLOYEE RELATION MANAGER Emergency [facility] Emergency Department [address] [place] [address] Susie Patton MD Enlarged aorta (Primary Dx); Bicuspid aortic valve; Aneurysm of ascending aorta without rupture; Dizziness Discharge Disposition: Home Self Care 08/23/2024 10:00 AM EMPLOYEE RELATION MANAGER Ancillary Procedure [facility] [address] [place] [address] Arrived 08/23/2024 Travel 08/22/2024 9:05 AM EMPLOYEE RELATION MANAGER Office Visit [facility] [address] [place] [address] Isidro Otero MD heart concerns (Lightheaded spells - feels head is floating around./Had a DOT physical and was told he might have a leaky heart valvue but not to worry about it./When eating salt, he feels heaviness on his chest.) 08/22/2024 Orders Only [facility] [address] [place] [address] Isidro Otero MD 1 scan: (1-Ord) NFLD-EKG-08/22/2024 [...] on file Legal Sex Male 5:26 AM EMPLOYEE RELATION MANAGER Gender Identity Not on file Sexual Orientation Not on file Obstetrics History Last Filed Vital Signs Vital Sign Reading Time Taken Comments Blood Pressure 124/77 08/26/2024 2:31 PM EMPLOYEE RELATION MANAGER Pulse 70 08/26/2024 2:31 PM EMPLOYEE RELATION MANAGER Temperature 37 C (98.6 F) 08/23/2024 12:42 PM EMPLOYEE RELATION MANAGER Respiratory Rate 18 08/23/2024 3:45 PM EMPLOYEE RELATION MANAGER Oxygen Saturation 96% 08/26/2024 2:31 PM EMPLOYEE RELATION MANAGER Inhaled Oxygen Concentration - - Weight 80.7 kg (178 lb) 08/26/2024 2:31 PM EMPLOYEE RELATION MANAGER Height 175.3 cm (5' 9) 08/26/2024 2:31 PM EMPLOYEE RELATION MANAGER Body Mass Index 26.29 08/26/2024 2:31 PM EMPLOYEE RELATION MANAGER Plan of Treatment Upcoming Encounters Date Type Department Care Team (Late st Contact Info) Description 09/14/2024 2:45 PM CDT Orders Only [facility] [address] [place] [address] Lab, [place] [facility] Maintenance Due Date Last [...] CV DUAL READ MARK 08/25/2024 1:14 PM EMPLOYEE RELATION MANAGER Bicuspid aortic valve Dizziness Enlarged aorta CT CARDIAC CORONARY ARTERIES RAD DUAL READ MARK 08/25/2024 1:14 PM EMPLOYEE RELATION MANAGER Bicuspid aortic valve Dizziness Enlarged aorta TROPONIN T (HS) ONE TIME Timed 08/23/2024 2:52 PM EMPLOYEE RELATION MANAGER CTA CHEST ABDOMEN PELVIS AORTIC DISSECTION W STAT 08/23/2024 2:16 PM EMPLOYEE RELATION MANAGER ISTAT CHEM 8 Timed 08/23/2024 1:19 PM EMPLOYEE RELATION MANAGER EKG 12 LEAD STAT 08/23/2024 1:16 PM EMPLOYEE RELATION MANAGER C-REACTIVE PROTEIN STAT 08/23/2024 12 :57 PM EMPLOYEE RELATION MANAGER SEDIMENTATION RATE STAT 08/23/2024 12 :57 PM EMPLOYEE RELATION MANAGER TROPONIN T (HS) ACUTE W/2HR REFLEX STAT 08/23/2024 12:57 PM EMPLOYEE RELATION MANAGER BASIC METABOLIC PANEL STAT 08/23/2024 12:57 PM EMPLOYEE RELATION MANAGER CBC W PLT NO DIFF STAT 08/23/2024 12: 57 PM EMPLOYEE RELATION MANAGER ECHO TTE COMPLETE WO CONTRAST Routine 08/23/2024 10:29 AM EMPLOYEE RELATION MANAGER Diastolic murmur Shortness of breath WI READING EKG - NO CHARGE, COMP ONLY Routine 08/22/2024 4:28 PM EMPLOYEE RELATION MANAGER Diastolic murmur Shortness of breath EKG 12 LEAD Routine 08/22/2024 4:28 PM EMPLOYEE RELATION MANAGER Diastolic murmur Shortness of breath ANTI HIV 1/2 Routine 07/24/2016 1:23 PM EMPLOYEE RELATION MANAGER Screen for STD (sexually transmitted disease) ANTI HCV Routine 07/24/2016 1:23 PM EMPLOYEE RELATION MANAGER Screen for STD (sexually transmitted disease) from Last 3 Months or Most Recently Relevant to Health Maintenance Results * CT CARDIAC CORONARY ARTERIES CV DUAL READ (08/25/2024 1:14 PM EMPLOYEE RELATION MANAGER) Anatomical Region Laterality Modality HEART Computed Tomogra phy 08/25/2024 1:00 PM EMPLOYEE RELATION MANAGER Narrative 08/25/2024 3:05 PM EMPLOYEE RELATION MANAGER [facility] Cardiac CT Report Name: YENNY ECHEVERRIA : Scan Date: Accession Number: [id number] Status: Final Electronically signed by Juancarlos Heredia 15:05:05 VITALS ===== HEIGHT: 69 in (175 cm) WEIGHT: 174 lbs (79 kgs) BSA: 1.95 m^2 BMI: 26 kg/m^2 BP: 118 / 71 mmHg BASELINE HR: 53 BPM HEART RHYTHM: Normal Sinus Rhythm FINAL IMPRESSION ===== Minto Coronaries: 1. Normal epicardial coronary arteries without [...] ===== TEST TYPE: Coronary CT Angiography SCANNER [employer]AL HOME MANAGER: SIEMENS SCANNER MODEL: [email or web address] DOSE REDUCTION ALGORITHM: Prospective/[id number]-eeclf PHASE UNITS: % START PHASE: 65 % [...] RICARDO TECHNOLOGIST: Landen Baird ===== Patient Account [id number] ICD10 Codes Q23.81, R42, I77.89 Report generated by [employer], a product of [employer] Procedure Note Juancarlos Heredia MD - 08/25/2024 [facility] Cardiac CT Report Name: YENNY ECHEVERRIA : Scan Date: Accession Number: [id number] Status: Final Electronically signed by Juancarlos Heredia 15:05:05 VITALS ===== HEIGHT: 69 in (175 cm) WEIGHT: 174 lbs (79 kgs) BSA: 1.95 m^2 BMI: 26 kg/m^2 BP: 118 / 71 mmHg BASELINE HR: 53 BPM HEART RHYTHM: Normal Sinus Rhythm FINAL IMPRESSION ===== Minto Coronaries: 1. Normal epicardial coronary arteries without [...] ===== TEST TYPE: Coronary CT Angiography SCANNER [employer]AL HOME MANAGER: SIEMENS SCANNER MODEL: [employer] DOSE REDUCTION ALGORITHM: Prospective/[id number]-epgkj PHASE UNITS: % START PHASE: 65 % [...] RICARDO TECHNOLOGIST: Landen Baird ===== Patient Account [id number] ICD10 Codes Q23.81, R42, I77.89 Report generated by [employer], a product of [employer] Clemencia Ricardo MD CT Final Result * CT CARDIAC CORONARY ARTERIES RAD DUAL READ (08/25/2024 1:14 PM EMPLOYEE RELATION MANAGER) Anatomical Region Laterality Modality HEART Computed Tomogra phy Impressions 08/25/2024 2:33 PM EMPLOYEE RELATION MANAGER See separate cardiology report for cardiac findings. Please note that all CT scans at this facility use dose modulation, iterative reconstruction and/or weight-based dosing when appropriate to reduce radiation dose to as low as reasonably achievable. Sofiya Read M.D. Diagnostic/Breast Radiologist [email or web address] / Narrative 08/25/2024 2:33 PM EMPLOYEE RELATION MANAGER For Patients: As a result of the [...] conjunction with the services provided by the [facility] ([facility]). INDICATION: Cardiac over-read. FINDINGS: There is no central pulmonary emboli. Visualized lungs appear clear. Clemencia Ricardo MD CT Final Result * TROPONIN T (HS) ONE TIME (08/23/2024 2:52 PM EMPLOYEE RELATION MANAGER) Pathologist [facility] TROPONIN T HS 7 6-15 ng/L ng/L 08/23/2024 3:33 PM EMPLOYEE RELATION MANAGER [facility] Blood BLOOD SPECIMEN / Unknown Non-Lab Venipuncture / Unknown 08/23/2024 2:52 PM EMPLOYEE RELATION MANAGER 08/23/2024 2:57 PM EMPLOYEE RELATION MANAGER Susie Patton MD CHEMISTRY Final Result [facility] [address] [place] [address], [place] * CTA CHEST ABDOMEN PELVIS AORTIC DISSECTION W (08/23/2024 2:16 PM EMPLOYEE RELATION MANAGER) Anatomical Region Laterality Modality CHEST, Abdomen, Pelvis, AORTA, THORAX, HEART Computed Tomography 08/23/2024 2:48 PM EMPLOYEE RELATION MANAGER Narrative 08/23/2024 2:48 PM EMPLOYEE RELATION MANAGER For Patients: As a result of the [...] (ABNORMAL) ISTAT CHEM 8 (08/23/2024 1:19 PM EMPLOYEE RELATION MANAGER) SODIUM, POCT 139 135 - 145 mmol/L 08/23/2024 1:22 PM EMPLOYEE RELATION MANAGER [facility] POTASSIUM, POCT 4.1 3.5 - 5.0 mmol/L 08/23/2024 1:22 PM EMPLOYEE RELATION MANAGER [facility] CHLORIDE, POCT 102 98 - 107 mmol/L 08/23/2024 1:22 PM EMPLOYEE RELATION MANAGER [facility] CO2,TOTAL, POCT 28 21 - 31 mmol/L 08/23/2024 1:22 PM EMPLOYEE RELATION MANAGER [facility] ANION GAP, POCT 14 5 - 18 1:22 PM EMPLOYEE RELATION MANAGER [facility] GLUCOSE, POCT 105(H) 70 - 99 mg/dL 08/23/2024 1:22 PM EMPLOYEE RELATION MANAGER [facility] IONIZED CALCIUM, POCT 08/23/2024 1:22 PM EMPLOYEE RELATION MANAGER [facility] Comment:Unable to determine. BUN, POCT 20 8 - 25 mg/dL 08/23/2024 1:22 PM EMPLOYEE RELATION MANAGER [facility] CREATININE, POCT 08/24/19 25 1:22 PM EMPLOYEE RELATION MANAGER [facility] Comment: Unable to determine. Caution: Patients taking Hydroxyurea have falsely increased iStat Creatinine results. Verify creatinine results ordering a Creatinine (71738.2) BUN/CREAT RATIO, POCT 08/23/2024 1:22 PM EMPLOYEE RELATION MANAGER [facility] Comment:Unable to calculate. eGFR 08/23/2024 1:22 PM EMPLOYEE RELATION MANAGER [facility] Comment:Unable to calculate. HEMATOCRIT, POCT 45.0 37.0 - 53.0 % 08/23/2024 1:22 PM EMPLOYEE RELATION MANAGER [facility] HEMOGLOBIN, POCT 15.3 13.5 - 17.5 g/dL 08/23/2024 1:22 PM EMPLOYEE RELATION MANAGER [facility] Blood BLOOD SPECIMEN / Unknown 08/23/2024 1:19 PM EMPLOYEE RELATION MANAGER 08/23/2024 1:22 PM EMPLOYEE RELATION MANAGER Susie Patton MD CHEMISTRY Final Result Performing Organization Address City/[facility]/ZIP Co de Phone Number [facility] [address] [place] [address], * EKG 12 LEAD (08/23/2024 1:16 PM EMPLOYEE RELATION MANAGER) Only the most recent of2 resultswithin the time period is included. Pathologist [facility] Interpretation Normal sinus rhythm Normal ECG BEYOND NOW Ventricular Rate 60 BPM BEYOND NOW Atrial Rate 60 BPM BEYOND NOW P-R Interval 152 ms BEYOND NOW QRS Duration 96 ms BEYOND NOW QT 418 ms BEYOND NOW QTc 418 ms BEYOND NOW P Schulter 57 degrees BEYOND NOW R Schulter 57 degrees BEYOND NOW T Schulter 65 degrees BEYOND NOW 08/23/2024 1:16 PM EMPLOYEE RELATION MANAGER 08/23/2024 5:32 PM EMPLOYEE RELATION MANAGER Susie Patton MD EKG ORD Final Result Performing Organization Address City/[facility] Co de Phone Number [place] NOW [place], [place] * TROPONIN T (HS) ACUTE W/2HR REFLEX (08/23/2024 12:57 PM EMPLOYEE RELATION MANAGER) Pathologist [facility] TROPONIN T HS 6 6-15 ng/L ng/L 08/23/2024 1:52 PM EMPLOYEE RELATION MANAGER [facility] Blood BLOOD SPECIMEN / Unknown Non-Lab Venipuncture / Unknown 08/23/2024 12:57 PM EMPLOYEE RELATION MANAGER 08/23/2024 1:18 PM EMPLOYEE RELATION MANAGER [facility] - 08/23/2024 1:52 PM EMPLOYEE RELATION MANAGER hs-cTnT (Elecsys Troponin T Gen 5) concentration [...] population. Susie Patton MD CHEMISTRY Final Result [facility] [address] [place] [address], [place] * SEDIMENTATION RATE (08/23/2024 12:57 PM EMPLOYEE RELATION MANAGER) SEDIMENTATION RATE 5 <15 mm/hr 2024 1:45 PM EMPLOYEE RELATION MANAGER [facility] Blood BLOOD SPECIMEN / Unknown Non-Lab Venipuncture / Unknown 08/23/2024 12:57 PM EMPLOYEE RELATION MANAGER 08/23/2024 1:18 PM EMPLOYEE RELATION MANAGER Susie Patton MD HEMATOLOGY Final Result [facility] [address] [place] [address], * CBC W PLT NO DIFF (08/23/2024 12:57 PM EMPLOYEE RELATION MANAGER) WHITE BLOOD COUNT 5.6 4.5 - 11.0 thou/cu mm 08/23/2024 1:23 PM EMPLOYEE RELATION MANAGER [facility] RED BLOOD COUNT 5.16 4.30 - 5.90 mil/cu mm 08/23/2024 1:23 PM EMPLOYEE RELATION MANAGER [facility] HEMOGLOBIN 15.9 13.5 - 17.5 g/dL 08/23/2024 1:23 PM EMPLOYEE RELATION MANAGER [facility] HEMATOCRIT 47.0 37.0 - 53.0 % 08/23/2024 1:23 PM EMPLOYEE RELATION MANAGER [facility] MCV 91 80 - 100 fL 08/23/2024 1:23 PM EMPLOYEE RELATION MANAGER [facility] MCH 30.8 26.0 - 34.0 pg 08/23/2024 1:23 PM EMPLOYEE RELATION MANAGER [facility] MCHC 33.8 32.0 - 36.0 g/dL 08/23/2024 1:23 PM EMPLOYEE RELATION MANAGER [facility] RDW 12.1 11.5 - 15.5 % 08/23/2024 1:23 PM EMPLOYEE RELATION MANAGER [facility] PLATELET COUNT 265 140 - 440 thou/cu mm 08/23/2024 1:23 PM EMPLOYEE RELATION MANAGER [facility] MPV 9.8 6.5 - 11.0 fL 08/23/2024 1:23 PM EMPLOYEE RELATION MANAGER [facility] NRBC 0.0 % 08/23/2024 1:23 PM EMPLOYEE RELATION MANAGER [facility] ABS NRBC 0.0 thou /cu mm 08/23/2024 1:23 PM EMPLOYEE RELATION MANAGER [facility] Blood BLOOD SPECIMEN / Unknown Non-Lab Venipuncture / Unknown 08/23/2024 12:57 PM EMPLOYEE RELATION MANAGER 08/23/2024 1:18 PM EMPLOYEE RELATION MANAGER Susie Patton MD HEMATOLOGY Final Result Performing Organization Address [facility] Co de Phone Number [facility] [address] [place] [address], * C-REACTIVE PROTEIN (08/23/2024 12:57 PM EMPLOYEE RELATION MANAGER) Pathologist [facility] C-REACTIVE PROTEIN <0.3 <0.5 mg/dL 08/23/2024 1:53 PM EMPLOYEE RELATION MANAGER [facility] Blood BLOOD SPECIMEN / Unknown Non-Lab Venipuncture / Unknown 08/23/2024 12:57 PM EMPLOYEE RELATION MANAGER 08/23/2024 1:18 PM EMPLOYEE RELATION MANAGER us Susie Patton MD CHEMISTRY Final Result Performing Organization Address [facility] Co de Phone Number [facility] [address] [place] [address], * (ABNORMAL) BASIC METABOLIC PANEL (08/23/2024 12:57 PM EMPLOYEE RELATION MANAGER) SODIUM 140 136 - 145 mmol/L 08/23/2024 1:52 PM EMPLOYEE RELATION MANAGER [facility] POTASSIUM 4.1 3.5 - 5.1 mmol/L 08/23/2024 1:52 PM EMPLOYEE RELATION MANAGER [facility] CHLORIDE 102 98 - 107 mmol/L 08/23/2024 1:52 PM EMPLOYEE RELATION MANAGER [facility] CO2,TOTAL 27 22 - 29 mmol/L 08/23/2024 1:52 PM EMPLOYEE RELATION MANAGER [facility] ANION GAP 11 5 - 18 08/23/2024 1:52 PM EMPLOYEE RELATION MANAGER [facility] GLUCOSE 101(H) 70 - 99 mg/dL 08/23/2024 1:52 PM [facility] CALCIUM 9.7 8.8 - 10.4 mg/dL 08/23/2024 1:52 PM [facility] Comment: Reference ranges for this test were updated on 04/26/2024 to reflect our healthy population more accurately. Reference range changes are not retroactively applied to results, but previous results using the same methodology can be interpreted in the context of the new reference range. BUN 18 6 - 20 mg/dL 08/23/2024 1:52 PM EMPLOYEE RELATION MANAGER [facility] CREATININE 1.09 0.70 - 1.20 mg/dL 08/23/2024 1:52 PM EMPLOYEE RELATION MANAGER [facility] BUN/CREAT RATIO 17 10 - 20 1:52 PM [facility] eGFR >90 >90 mL/min/1. 73m2 08/23/2024 1:52 PM [facility] Comment:As of 2021, eG FR is calculated by the CKD-EPI creatinine equation without race adjustment. eGFR can be influenced by muscle mass, exercise, and diet. The reported eGFR is an estimation only and is only applicable if the renal function is stable. Blood BLOOD SPECIMEN / Unknown Non-Lab Venipuncture / Unknown 08/23/2024 12:57 PM EMPLOYEE RELATION MANAGER 08/23/2024 1:18 PM EMPLOYEE RELATION MANAGER us Susie Patton MD CHEMISTRY Final Result [facility] [address] [place] [address], [place] * ECHO TTE COMPLETE WO CONTRAST (08/23/2024 10:29 AM EMPLOYEE RELATION MANAGER) AORTIC VALVE MEAN PG 9 mmHg EJECTION FRACTION 65 % LVEDD 4.9 cm EJECTION FRACTION 60 - 65% PEAK TR VELOCITY 2.2 m/s Anatomical Region Laterality Modality Ultrasound 08/23/2024 10:0 9 AM EMPLOYEE RELATION MANAGER Narrative 08/23/2024 1:07 PM EMPLOYEE RELATION MANAGER ECHOCARDIOGRAM YENNY ECHEVERRIA : 1995 28 years Study Date: 08/23/2024 10:09:49 AM Gender: M BP: 97/50 mmHg Height: 180.00 cm BSA: 1.99 m Weight: 79.00 kg Tech: [facility] Referring MD: ISIDRO OTERO Site: [facility] Reading Location: [facility] Patient Location: Outpatient. Procedure: 2D, Spectral [...] . This study was interpreted by an [facility] accredited facility. Final Procedure Note Andrew Collins MD - 08/23/2024 ECHOCARDIOGRAM YENNY ECHEVERRIA : 1995 28 years Study Date: 08/23/2024 10:09:49 AM Gender: M BP: 97/50 mmHg Height: 180.00 cm BSA: 1.99 m Weight: 79.00 kg Tech: [facility] Referring MD: ISIDRO OTERO Site: [facility] Reading Location: [facility] Patient Location: Outpatient. Procedure: 2D, Spectral [...] . This study was interpreted by an [facility] accredited facility. Final us Isidro Otero MD ECHO ORD Final Res ult * [place] READING EKG - NO CHARGE, COMP ONLY (08/22/2024 4:28 PM EMPLOYEE RELATION MANAGER) us Isidro Otero MD PB - PROVIDER READINGS Fi nal Result * ANTI HCV (07/24/2016 1:23 PM EMPLOYEE RELATION MANAGER) HEPATITIS C ANTIBODY Non-Reacti ve Non-Reacti ve 07/24/2016 8:35 PM EMPLOYEE RELATION MANAGER [facility] Blood BLOOD SPECIMEN / Unknown Venipuncture / Unknown 07/24/2016 1:23 PM EMPLOYEE RELATION MANAGER 07/24/2016 1:24 PM EMPLOYEE RELATION MANAGER Narrative [facility] - 07/24/2016 8:35 PM EMPLOYEE RELATION MANAGER Antibodies to HCV not detected; does not exclude the possibility of exposure to HCV. us Isidro Otero MD SEND OUTS Final Res ult [facility] [address] [place] [address], [place] * ANTI HIV 1/2 (07/24/2016 1:23 PM EMPLOYEE RELATION MANAGER) HIV-1/HIV-2 ANTIBODY Non-Reacti ve Non-Reacti ve 07/24/2016 8:30 PM EMPLOYEE RELATION MANAGER [facility] Blood BLOOD SPECIMEN / Unknown Venipuncture / Unknown 07/24/2016 1:23 PM EMPLOYEE RELATION MANAGER 07/24/2016 1:24 PM EMPLOYEE RELATION MANAGER Narrative [facility] - 07/24/2016 8:30 PM EMPLOYEE RELATION MANAGER HIV-1 p24 and HIV-1/HIV-2 Ab not detected us Isidro Otero MD SEND OUTS Final Res ult [facility] [address] [place] [address], from Last 3 Months or Most Recently Relevant to Health Maintenance Insurance [employer] [place] [id number] Care Teams Legal Financial Specialist Relationship Specialty Start Date End Date Isidro Otero MD [address] [place] [id number] PCP - General Family Practice 08/26/24
== END 2024-08-26 20:33 | disposition left against medical advice (07) ==
LOC: ED 20:18
PROVIDERS: Emergency Provider Emergency Medicine
DX: Z53.21 Procedure and treatment not carried out due to patient leaving prior to being seen by health care provider (principal)
CPT/HCPCS: 99281

== ENCOUNTER 2025-01-20 07:30 | Outpatient (RCR) | payer OTHER, SELFPAY | END 2025-05-20 23:59 | disposition home or self-care (01) | PROVIDERS: PCP Family Medicine; Visit Provider Family Medicine | DX: H81.10 Benign paroxysmal vertigo, unspecified ear (principal); Z51.89 Encounter for other specified aftercare | CPT/HCPCS: 97110; 97140; 97162 ==